=== PATIENT | female | born 1990 | race Hispanic/Latino ===

== ENCOUNTER 2020-03-07 11:27 | Emergency (ER) | payer OTHER ==
[2020-03-07 12:29] LABS: #Lymphocytes 1.4 thou/uL (1.20-3.40); #Monocytes 0.6 thou/uL (0.11-0.59); #Neutrophils 6.9 thou/uL (1.40-6.50); %Basophils 0.1 % (0.0-1.0); %Eosinophils 0.3 % (0.0-10.0); %Lymphocytes 15.3 % (21.0-51.0); %Monocytes 6.3 % (0.0-10.0); %Neutrophils 78.1 % (42.0-75.0); Hemoglobin 14.1 g/dL (12.0-16.0); Mean Corpuscular HGB CONC 33.1 g/dL (32.0-36.0); Mean Corpuscular Hemoglobin 31.2 pg (27.0-31.0); Mean Corpuscular Volume 94.3 fL (78.0-98.0); Mean Platelet Volume 9.4 fL (7.4-10.4); Platelet Count 216 thou/uL (130-400); RBC Distribution Width 12.3 % (11.5-14.5); Red Blood Cell (RBC) Count 4.51 mill/uL (4.20-5.40); White Blood Cell (WBC) Count 8.8 thou/uL (4.8-10.8)
[2020-03-07 12:40] LABS: BHCG - Serum POSITIVE (NEGATIVE); Pregs Control Background? CLEAR/WHITE (CLR/WHITE); Pregs Control Bar Appear? YES (CONTROL BAR)
[2020-03-07 14:01] LABS: Bacteria/HPF None Seen HPF (None Seen); Bilirubin Negative (Negative); Blood, Urine 2+ (Negative); Clarity Clear (Clear); Glucose, Urine (Dipstick) Normal (Negative); Ketone, Urine 40 mg/dL (Negative); Leukocyte Negative Leu/uL (Negative); Nitrite Negative (Negative); Protein, Urine (Dipstick) Negative (Neg-Trace); Specific Gravity, Urine 1.012 (1.002-1.036); Urobilinogen Normal mg/dL (Less than 2); WBC/HPF 0-3 HPF (0-3); pH, Urine 7.5 (5.0-9.0)
--- NOTE | 2020-03-07 15:02 | ULT ---
Obstetric sonogram transabdominal imaging with duplex evaluation HISTORY: Early . Vaginal bleeding. FINDINGS: Gestational sac in the endometrial cavity contains a small yolk sac and pole. Heart m otion at 150 bpm. Measurements correlate with 7 weeks 0 days gestational age giving an estimated date of delivery of 10/24/2020. Inferior to the gestational sac in the subchorionic space is a small l obular fluid collection measuring up to 1.2 cm. No free fluid in the pelvis. Each ovary has normal appearance and demonstrates good color and spectral Doppler flow. IMPRESSION : Single viable intrauterine gestation. Estimated gestational age 7 weeks 0 days. Small subchorionic hemorrhage.
== END 2020-03-07 15:39 | disposition home or self-care (01) ==
LOC: ERS 11:27
DX: O20.0 Threatened abortion (principal); Z3A.01 Less than 8 weeks gestation of pregnancy
CPT/HCPCS: 36415; 76856; 81003; 81015; 84702; 84703; 85025; 86900; 86901; 93976